=== PATIENT | female | born 1955 | race Caucasian/White ===

== ENCOUNTER 2022-08-17 00:55 | Day surgery (SDC) | payer MEDICARE, SELFPAY ==
[2022-08-07 14:44] VITALS: BMI 24.4
--- NOTE | 2022-08-16 14:23 | PM.HPGS ---
History of Present Illness History of Present Illness Consent: Risks, benefits, and alternatives have been discussed and questions answered. Patient agrees to proceed with procedure. Chief complaint: hx colon polyps Narrative: Arti Trivedi is a 67 year old female Referred for colon cancer screening. Four years ago she had 2 adenomatous polyps removed. Review of Systems Review of Systems: All systems reviewed & are unremarkable except as noted in HPI and below PMFSH Social History Social History Smoking status: Never smoker Alcohol intake: current Drinks per week: 6 Alcohol use details: WINE Substance use: never Substance use type: does not use Living arrangements: with family Spiritual care concerns: No Meds Home Medications and Allergies Home Medications Medication Instructions Recorded Confirmed Type Adults Multivitamin 1 cap PO DAILY 08/07/22 08/07/22 History Calcium 500 With D 1 gummy PO DAILY 08/07/22 08/07/22 History apixaban 5 mg tablet (Eliquis) 5 mg PO BID 08/07/22 08/17/22 History bupropion HCl 150 mg 24 hr tablet, 150 mg PO QAM 08/07/22 08/07/22 History extended release cyclosporine 0.05 % eye drops in a 1 drp EACH EYE BID 08/07/22 08/07/22 History dropperette (Restasis) estradiol 1 mg tablet 1 mg PO DAILY 08/07/22 08/07/22 History estradiol 10 mcg vaginal tablet 10 mcg vaginal 2XW 08/07/22 08/07/22 History (Yuvafem) levothyroxine 88 mcg tablet 88 mcg PO DAILY 08/07/22 08/17/22 History pantoprazole 40 mg tablet,delayed 40 mg PO QAM 08/07/22 08/07/22 History release polyethylene glycol 3350 17 17 g PO DAILY 08/07/22 08/07/22 History gram/dose oral powder (Miralax) Allergies Allergy/AdvReac Type Severity Reaction Status Date / Time Penicillins Allergy Intermediate FACIAL Verified 08/17/22 07:42 HIVES. Exam Const: General: alert Orientation/consciousness: patient oriented x3 Resp: Auscultation: clear to auscultation bilaterally Cardio: Rhythm: regular rhythm GI: GI Palp: Yes Soft to palpation and No Tenderness to palpation present (GI) Neuro: General: patient oriented x3 Assessment and Plan Assessment and plan (1) Colon cancer screening: Code(s): Z12.11 - Encounter for screening for malignant neoplasm of colon Status: Acute Assessment and Plan: Colonoscopy with possible biopsy or polypectomy or cautery or injection of substances.
[2022-08-17 07:46] VITALS: BP 131/67; PULSE 64; RESP 18; TEMP 36.1; O2SAT 100
[2022-08-17] MEDS: LACTATED RINGERS 1,000 ML 150 ML IV CONT (07:56)
--- NOTE | 2022-08-17 08:07 | WPDANESEPPF ---
Anes - Initial Pre Proc Eval Procedure: Operation Date: 08/17/22 08:30 Proposed Procedures p Screening Colonoscopy - Kevin Oneill MD Date/Time: 08/17/22 08:07 Surgeon: Kevin Oneill MD Pre Op Diagnosis: hx colon polyps Patient Data Age: 67 Gender: F Height: 1.63 m Weight: 64.8 kg Last Vital Signs Temp 36.1 C L 08/17/22 07:46 Pulse 64 08/17/22 07:46 Resp 18 08/17/22 07:46 BP 131/67 08/17/22 07:46 Pulse Ox 100 08/17/22 07:46 O2 Del Method Room Air 08/17/22 07:46 Allergies Allergy/AdvReac Type Severity Reaction Status Date / Time Penicillins Allergy Intermediate FACIAL Verified 08/17/22 07:42 HIVES. Home Medications Medication Instructions Recorded Confirmed Type Adults Multivitamin 1 cap PO DAILY 08/07/22 08/07/22 History Calcium 500 With D 1 gummy PO DAILY 08/07/22 08/07/22 History apixaban 5 mg tablet (Eliquis) 5 mg PO BID 08/07/22 08/17/22 History bupropion HCl 150 mg 24 hr tablet, 150 mg PO QAM 08/07/22 08/07/22 History extended release cyclosporine 0.05 % eye drops in a 1 drp EACH EYE BID 08/07/22 08/07/22 History dropperette (Restasis) estradiol 1 mg tablet 1 mg PO DAILY 08/07/22 08/07/22 History estradiol 10 mcg vaginal tablet 10 mcg vaginal 2XW 08/07/22 08/07/22 History (Yuvafem) levothyroxine 88 mcg tablet 88 mcg PO DAILY 08/07/22 08/17/22 History pantoprazole 40 mg tablet,delayed 40 mg PO QAM 08/07/22 08/07/22 History release polyethylene glycol 3350 17 17 g PO DAILY 08/07/22 08/07/22 History gram/dose oral powder (Miralax) Patient hx anesthesia problems: post op nausea/vomiting Family hx anesthesia problems: none Results Review: All pre-operative results and documents have been reviewed as part of the pre-operative evaluation. FORMERLY [facility] Social History Social History Smoking status: Never smoker Alcohol intake: current Drinks per week: 6 Alcohol use details: WINE Substance use: never Substance use type: does not use Living arrangements: with family Spiritual care concerns: No Anes - Eval Final PreProcedure Day of Procedure 08/17/22 08:07 Patient weight: normal Heart: regular rate and rhythm Lungs: clear to auscultation Airway: Mallampati scale class II Neurological: alert and oriented Last oral intake: >/= 8 hours ASA classification: III Emergent: no Anesthetic plan: proceed Anesthesia type and monitoring: general GIVS and standard monitoring Results Review: All pre-operative results and documents have been reviewed as part of the pre-operative evaluation. Informed Consent: The patient's anesthetic plan and its attendant risks and benefits were discussed with the patient/family/POA. Questions were solicited and answers provided to the satisfaction of the patient/family/POA.
[2022-08-17] MEDS: SIMETHICONE ORAL SUSPENSION 20 MG/0.3 ML 30 ML BOTTLE 0.6 ML IRRIGATION (08:32)
[2022-08-17 08:43] VITALS: BP 99/54; PULSE 66; RESP 15; O2SAT 99
[2022-08-17 08:53] VITALS: BP 117/69; PULSE 69; RESP 15; O2SAT 100
[2022-08-17 09:03] VITALS: BP 138/72; PULSE 71; RESP 20; O2SAT 99
== END 2022-08-17 09:16 | disposition home or self-care (01) ==
PROVIDERS: PCP Internal Medicine; Visit Provider Internal Medicine Gastroenterology
PROC: 0DJD8ZZ Inspection of Lower Intestinal Tract, Via Natural or Artificial Opening Endoscopic (ICD-10-PCS; CPT 45378; principal; 2022-08-17 08:30)
DX: Z12.11 Encounter for screening for malignant neoplasm of colon (principal); K64.8 Other hemorrhoids; K57.30 Diverticulosis of large intestine without perforation or abscess without bleeding; D12.8 Benign neoplasm of rectum
CPT/HCPCS: 45385; 88305; J2704; J7120

== ENCOUNTER 2023-09-05 08:29 | Outpatient (CLI) | payer OTHER, SELFPAY ==
--- NOTE | 2023-09-05 08:46 | ECG_ITS ---
Measurements Intervals [place] Rate: 76 P: 66 WA: 120 QRS: 19 QRSD: 89 T: 23 QT: 395 QTc: 446 Interpretive Statements SINUS RHYTHM NO PREVIOUS ECG AVAILABLE FOR COMPARISON Electronically Signed On 09-05-2023 16:36:00 ELEVATOR DISPATCHER by Abdiel Ding M.D.
== END 2023-09-05 08:30 | disposition home or self-care (01) ==
LOC: ANHSURGERY 08:34
PROVIDERS: PCP Internal Medicine; Visit Provider Surgery Plastic and Reconstructive Surgery
DX: Z01.818 Encounter for other preprocedural examination (principal); Z86.79 Personal history of other diseases of the circulatory system
CPT/HCPCS: 93005

== ENCOUNTER 2023-09-11 01:12 | Day surgery (SDC) | payer OTHER, SELFPAY ==
--- NOTE | 2023-09-03 14:17 | PC.NURSE ---
Report to the Outpatient Waiting Room, entrance under the green pavilion located off [facility], at time __0630 on date _09/11/23 . Planned Procedure Time: __30 . Time changes happen often and if your time is changed the preop area will call you the afternoon before. - You and your visitor will be asked to self-screen and do not enter if you have any COVID symptoms. - A mask is optional within the hospital at this time. Patients may have clear liquids (water, carbonated beverages, clear teas, apple juice) until 3 hours prior to surgery( 5:30 AM) with a maximum of 20 ounces. - No food from midnight until time of surgery - Infants may have breast milk until 4 hours before surgery, infant formula 6 hours prior to surgery. - Children will be allowed to drink immediately following surgery. If applicable, please bring a bottle or sippy cup to assist with drinking. Juice, water, soda, and popsicles are readily available. For infants on formula, please bring formula the day of surgery. Pacifiers are allowed. Take the following medications with a SIP of water the morning of surgery: _BUPROPION,LEVOTHYROXINE DO NOT STOP ANY OF YOUR OTHER PRESCRIPTION MEDICATIONS PRIOR TO SURGERY ?EXCEPT THE FOLLOWING Medications to discontinue per physician ____HOLD ALL VITAMINS AND SUPPLEMENTS 3 DAYS PRE OP.LAST DOSE 09/07/23 Please no make-up, nail spanish, hairspray, perfume, deodorant, or body powder the day of surgery. No jewelry (including any body piercings) or valuables the day of surgery, leave them at home. Please take a shower or bath the night before, or the morning of, surgery with an antibacterial soap. Wear comfortable, loose fitting clothing. Children are encouraged to wear pajamas. - Jewelry must be removed prior to entering the operating room. Rings and piercings that are not removed may be cut off. - The hospital will not accept responsibility for valuables. - Please leave all valuables, including medications, at home the day of surgery. If you are going home after surgery, a licensed subway train driver must drive you home. - NO public transportation without another adult if you receive anesthesia. - We recommend that an adult stay with you for 24 hours following discharge. - We also recommend that you do not drive, make important decision, drink alcoholic beverages, or take any drugs that were not prescribed by your health care provider for at least 24 hours after your discharge time. Follow any additional instructions given to you from your surgeon. If you or anyone in your household have experienced Covid symptoms in the past week, please notify your surgeon or the nurse liaison at the phone number below for possible testing. Telephone instructions given to _PATIENT and asked if any additional questions and then verbalized understanding. Patient advised to call surgeon office or pre surgery nurse liaison [phone] if any additional questions.
[2023-09-03 14:27] VITALS: BMI 24.7
[2023-09-11] VITALS (8 sets, daily range): BP systolic 118–156; BP diastolic 56–74; PULSE 68–79; RESP 12–20; TEMP 36.1–37.1; O2SAT 98–100
[2023-09-11] MEDS: LACTATED RINGERS 1,000 ML 30 ML IV CONT ×2 (06:45→09:37)
--- NOTE | 2023-09-11 06:59 | WPDHPUPDATE1 ---
History and Physical Update Update Date/Time: 09/11/23 06:59 History and Physical has been reviewed, including an updated exam of the patient. There are NO changes in the patient's condition. Risks, benefits, and alternatives have been discussed and questions answered. Patient agrees to proceed with procedure.
--- NOTE | 2023-09-11 06:59 | W.PM.PROC2 ---
Procedure Note - Detailed Date of Procedure 09/11/23 Pre-op Diagnosis history of breast augmentation Post-op Diagnosis Same Procedure Performed Bilateral breast implant exchange Surgeon Abhi Fenton MD Anesthesia General Indications History of bilateral augmentation mastopexy. Now wishing to exchange implants for increased size. Same plane. Declines mastopexy. She elected to proceed through a lower vertical breast scar (understanding options and associated risks, benefits, alternatives of each). Findings Previous implants 10-210. Smooth, intact. Replacement implants: Bilateral Anselmo SoftTouch 415 cc Right - REF# SSF-[id number] SN [id number] Left - REF# [id number] SN [id number] Description of Procedure Preoperatively the risks, benefits, alternatives were discussed in extensive detail. I wanted to be very realistic about the risks involved as well as expectations. I was clear about how we could actually make her worse. Answered all questions to satisfaction. Voiced a clear understanding. Consent obtained. She was taken the operating room placed supine on the operating room table. Anesthesia provided by anesthesiology and prepped and draped in a standard sterile fashion. Surgical time-out was taken. 1% lidocaine and 0.25% Marcaine with epinephrine was used to provide a field block. Tegaderm nipple alvarez were placed. Fifteen blade used to excise the previous inferior aspect of vertical mastopexy scar. Dissection was continued down until the capsules were identified. Capsulotomy and capsulorraphy completed and planned I then copiously irrigated with 3 L of saline solution on TUR tubing. Verified strict hemostasis. I then irrigated with Betadine containing solution. Using a no-touch technique and a Lima funnel the implant was introduced into the pocket. This was closed with 2-0 PDS followed by 3-0 Monocryl and a running subcuticular 4-0 Monocryl followed by tissue glue. Dressings were placed. She was woken taken to the PACU without difficulty. All instrument sponge counts were correct at the end of the case. Estimated Blood Loss 25 Drains No Packing No Pathology None sent Complications No immediate complications Condition Stable Disposition PACU
--- NOTE | 2023-09-11 07:15 | WPDANESEPPF ---
Anes - Initial Pre Proc Eval Procedure: Operation Date: 09/11/23 08:30 Proposed Procedures p Bilateral Breast Implant Exchange - Abhi Fenton MD Date/Time: 09/11/23 07:15 Surgeon: Abhi Fenotn MD Pre Op Diagnosis: history of breast augmentation Patient Data Age: 68 Gender: F Height: 1.63 m Weight: 65.35 kg Allergies Allergy/AdvReac Type Severity Reaction Status Date / Time Penicillins Allergy Intermediate FACIAL Verified 09/11/23 07:31 HIVES. Home Medications Medication Instructions Recorded Confirmed Type Adults Multivitamin 1 cap PO DAILY 08/07/22 09/11/23 History Calcium 500 With D 1 gummy PO DAILY 08/07/22 09/03/23 History bupropion HCl 150 mg 24 hr tablet, 150 mg PO QAM 08/07/22 09/11/23 History extended release cyclosporine 0.05 % eye drops in a 1 drp EACH EYE BID 08/07/22 09/03/23 History dropperette (Restasis) estradiol 1 mg tablet 1 mg PO 3XW 08/07/22 09/03/23 History estradiol 10 mcg vaginal tablet 10 mcg vaginal 2XW 08/07/22 09/03/23 History (Yuvafem) levothyroxine 88 mcg tablet 88 mcg PO DAILY 08/07/22 09/11/23 History polyethylene glycol 3350 17 17 g PO DAILY 08/07/22 09/03/23 History gram/dose oral powder (Miralax) ascorbic acid (vitamin C) 500 mg 500 mg PO DAILY 09/03/23 09/03/23 History capsule cholecalciferol (vitamin D3) 125 125 mcg PO 2XW 09/03/23 09/03/23 History mcg (5,000 unit) tablet cyanocobalamin (vitamin B-12) 1,000 mcg PO DAILY 09/03/23 09/03/23 History 1,000 mcg capsule omeprazole magnesium 20 mg 20 mg PO DAILY 09/03/23 09/03/23 History tablet,delayed release (Prilosec OTC) Patient hx anesthesia problems: post op nausea/vomiting Family hx anesthesia problems: none Results Review: All pre-operative results and documents have been reviewed as part of the pre-operative evaluation. [facility] Past Medical History Medical History (Updated 09/11/23 @ 07:17 by Riki Tam DO) Atrial fibrillation Endometriosis Hairy cell leukemia chemo 1999 Hyperlipidemia Hypertension Hypothyroidism Surgical History Surgical History (Updated 09/11/23 @ 07:17 by Riki Tam DO) H/O cardiac radiofrequency ablation 2016 Social History Social History (Updated 09/11/23 @ 07:37 by Riki Tam DO) Smoking status: Never smoker Alcohol intake: current Drinks per week: 6 Alcohol use details: 2 drinks/day Substance use: never Substance use type: does not use Living arrangements: with family Spiritual care concerns: No Anes - Eval Final PreProcedure Day of Procedure 09/11/23 07:15 Patient weight: obese Heart: regular rate and rhythm Lungs: clear to auscultation Airway: Mallampati scale class II Neurological: alert and oriented Last oral intake: >/= 8 hours ASA classification: III Emergent: no Anesthetic plan: proceed Anesthesia type and monitoring: general LMA and standard monitoring Results Review: All pre-operative results and documents have been reviewed as part of the pre-operative evaluation. Informed Consent: The patient's anesthetic plan and its attendant risks and benefits were discussed with the patient/family/POA. Questions were solicited and answers provided to the satisfaction of the patient/family/POA.
[2023-09-11] MEDS: SCOPOLAMINE 1 MG PATCH 1 PATCH TRANSDERM (07:37)
[2023-09-11] MEDS: TRANEXAMIC ACID 1,000MG/ISO100 1,000 MG/100 ML BAG 200 MG IVPB (08:22)
[2023-09-11] MEDS: LIDO 1%/EPINEPHRINE 1:100,000 50 ML VIAL 30 ML INFILTRATE (08:30)
[2023-09-11] MEDS: BUPivacaine HCL 0.25% PF 30 ML VIAL INFILTRATE (08:31)
[2023-09-11] MEDS: ceFAZolin 2 GM/D5W 50 ML 2 GM/50 ML BAG IVPB (08:32)
[2023-09-11] MEDS: NACL 0.9% IRRIG POUR BOTTLE 900 ML, GENTAMICIN SULFATE INJ 160 MG, CLINDAMYCIN PHOS INJ... IRRIGATION (08:47)
[2023-09-11] MEDS: fentaNYL CITRATE INJ (*CRX) 100 MCG/2 ML VIAL 25 MCG IV PUSH ×8 (09:40→10:13)
[2023-09-11] MEDS: ONDANSETRON INJ 4 MG/2 ML VIAL IV PUSH (10:30)
== END 2023-09-11 11:38 | disposition home or self-care (01) ==
PROVIDERS: PCP Internal Medicine; Visit Provider Surgery Plastic and Reconstructive Surgery
PROC: (CPT 19342; principal; 2023-09-11 08:30)
DX: Z41.1 Encounter for cosmetic surgery (principal); I48.91 Unspecified atrial fibrillation; E78.5 Hyperlipidemia, unspecified; E03.9 Hypothyroidism, unspecified; I10 Essential (primary) hypertension; Z85.6 Personal history of leukemia
CPT/HCPCS: 19370; 19325; A9270; J0690; J1580; J2250; J2405; J3010; J7120